=== PATIENT | female | born 1970 | race Caucasian/White ===

== ENCOUNTER 2021-06-11 13:15 | Emergency (ER) | payer OTHER ==
[2021-06-12 15:36] LABS: HIV (1/2) Antibody/Antigen Non-Reactive (NonReactive); HIV 1/2 INDEX 0.12 S/CO (<1.00); Hep C IgG Ab Non-Reactive (NonReactive)
[2021-06-12 15:39] LABS: HBSAB Concentration 40.41 mIU/mL; Hep B Surf AB Reactive (NonReactive)
== END 2021-06-11 14:04 | disposition home or self-care (01) ==
LOC: BURERS 13:15
DX: S61.432A Puncture wound without foreign body of left hand, initial encounter (principal); W46.1XXA Contact with contaminated hypodermic needle, initial encounter
CPT/HCPCS: 36415; 86706; 86803; 87389; 99283